=== PATIENT | female | born 1965 | race Caucasian/White ===

== ENCOUNTER 2017-01-27 14:41 | Outpatient (CLI) | payer BC | END 2017-01-27 14:42 | disposition home or self-care (01) | DX: Z51.81 Encounter for therapeutic drug level monitoring (principal) ==

== ENCOUNTER 2017-10-03 09:15 | Outpatient (CLI) | payer BC ==
[2017-10-03 18:04] LABS: CHOL/HDL RATIO 2.1 (<4.4); CHOLESTEROL 199 mg/dL; HDL CHOLESTEROL 93 mg/dL; TRIGLYCERIDES 82 mg/dL; VLDL CHOLESTEROL 16 mg/dL
== END 2017-10-03 09:16 | disposition home or self-care (01) ==
LOC: LAB.F 09:15
PROVIDERS: ATTEND Physician Assistant Medical
DX: Z00.00 Encounter for general adult medical examination without abnormal findings (principal); Z13.89 Encounter for screening for other disorder
CPT/HCPCS: 36415; 80061

== ENCOUNTER 2018-06-09 13:44 | Outpatient (CLI) | payer BC ==
[2018-06-09 17:39] LABS: BASOPHILS # (AUTO) 0.1 10^3/uL (0.0-0.1); BASOPHILS % (AUTO) 0.6 %; EOSINOPHILS % (AUTO) 0.4 %; HGB - HEMOGLOBIN 13.8 g/dL (12.0-16.0); LYMPHOCYTES # (AUTO) 2.2 10^3/uL (1.5-3.5); LYMPHOCYTES % (AUTO) 24.1 %; MEAN CORPUSCULAR HEMOGLOBIN 34.5 pg (27.0-31.0); MEAN CORPUSCULAR HGB CONC 34.1 g/dL (32.0-36.0); MEAN CORPUSCULAR VOLUME 101.3 fL (81.0-99.0); MEAN PLATELET VOLUME 8.4 fL (7.9-10.8); MONOCYTES # (AUTO) 0.5 10^3/uL (0.0-1.0); MONOCYTES % (AUTO) 5.6 %; NEUTROPHILS # (AUTO) 6.2 10^3/uL (1.5-6.6); NEUTROPHILS % (AUTO) 69.3 %; PLT - PLATELET COUNT 219 10^3/uL (130-450); RED BLOOD COUNT 3.99 10^6/uL (4.20-5.40); RED CELL DISTRIBUTION WIDTH 13.4 % (12.0-15.0)
[2018-06-09 19:04] LABS: ALBUMIN 4.3 g/dL (3.2-5.5); ALBUMIN/GLOBULIN RATIO 1.2 (1.0-2.2); ALKALINE PHOSPHATASE 103 IU/L (42-121); ALT ALANINE AMINOTRANSFERASE 39 IU/L (10-60); AST ASPARTATE AMINOTRANSFERASE 52 IU/L (10-42); BUN - BLOOD UREA NITROGEN 14 mg/dL (6-20); CALCIUM 9.3 mg/dL (8.5-10.3); CARBON DIOXIDE - CO2 26 mmol/L (21-32); CHLORIDE 100 mmol/L (101-111); CHOLESTEROL 209 mg/dL; CREATININE 0.7 mg/dL (0.4-1.0); GFR - MDRD 88 (>89); GLUCOSE 98 mg/dL (70-100); HDL CHOLESTEROL 107 mg/dL; LDL CHOLESTEROL,CALCULATED 85 mg/dL; LDL/HDL RATIO 0.8 (<4.4); SODIUM 138 mmol/L (135-145); VLDL CHOLESTEROL 17 mg/dL
== END 2018-06-09 13:45 | disposition home or self-care (01) ==
LOC: LAB.F 13:44
PROVIDERS: ATTEND Physician Assistant Medical
DX: I10 Essential (primary) hypertension (principal); Z51.81 Encounter for therapeutic drug level monitoring; E78.5 Hyperlipidemia, unspecified
CPT/HCPCS: 36415; 80053; 80061; 83721; 85025

== ENCOUNTER 2019-10-13 15:20 | Outpatient (CLI) | payer BC ==
[2019-10-13 17:13] LABS: BASOPHILS # (AUTO) 0.1 10^3/uL (0.0-0.1); EOSINOPHILS # (AUTO) 0.1 10^3/uL (0.0-0.7); EOSINOPHILS % (AUTO) 1.1 %; HGB - HEMOGLOBIN 12.4 g/dL (12.0-16.0); LYMPHOCYTES # (AUTO) 2.4 10^3/uL (1.5-3.5); LYMPHOCYTES % (AUTO) 30.2 %; MEAN CORPUSCULAR HEMOGLOBIN 34.7 pg (27.0-31.0); MEAN CORPUSCULAR HGB CONC 33.7 g/dL (32.0-36.0); MEAN CORPUSCULAR VOLUME 103.1 fL (81.0-99.0); MONOCYTES # (AUTO) 0.5 10^3/uL (0.0-1.0); MONOCYTES % (AUTO) 6.1 %; NEUTROPHILS # (AUTO) 4.9 10^3/uL (1.5-6.6); NEUTROPHILS % (AUTO) 60.7 %; PLT - PLATELET COUNT 258 10^3/uL (130-450); RED BLOOD COUNT 3.57 10^6/uL (4.20-5.40); RED CELL DISTRIBUTION WIDTH 13.2 % (12.0-15.0); WHITE BLOOD COUNT 8.1 x10^3/uL (4.8-10.8)
[2019-10-13 17:40] LABS: ALBUMIN 4.4 g/dL (3.2-5.5); ALBUMIN/GLOBULIN RATIO 1.1 (1.0-2.2); ALKALINE PHOSPHATASE 96 IU/L (42-121); ALT ALANINE AMINOTRANSFERASE 28 IU/L (10-60); AST ASPARTATE AMINOTRANSFERASE 46 IU/L (10-42); BILIRUBIN,TOTAL 0.8 mg/dL (0.2-1.0); BUN - BLOOD UREA NITROGEN 15 mg/dL (6-20); CALCIUM 9.9 mg/dL (8.5-10.3); CARBON DIOXIDE - CO2 26 mmol/L (21-32); CHLORIDE 102 mmol/L (101-111); CHOLESTEROL 248 mg/dL; CREATININE 0.7 mg/dL (0.4-1.0); GFR - MDRD 87 (>89); GLUCOSE 120 mg/dL (70-100); HDL CHOLESTEROL 127 mg/dL; LDL CHOLESTEROL,CALCULATED 102 mg/dL; LDL/HDL RATIO 0.8 (<4.4); SODIUM 139 mmol/L (135-145); TOTAL PROTEIN 8.4 g/dL (6.7-8.2); VLDL CHOLESTEROL 19 mg/dL
== END 2019-10-13 15:21 | disposition home or self-care (01) ==
LOC: LAB.S 15:20
PROVIDERS: ATTEND Physician Assistant Medical
DX: Z51.81 Encounter for therapeutic drug level monitoring (principal); Z79.899 Other long term (current) drug therapy; I10 Essential (primary) hypertension; E78.5 Hyperlipidemia, unspecified
CPT/HCPCS: 36415; 80053; 80061; 83721; 84443; 85025

== ENCOUNTER 2020-06-09 15:35 | Outpatient (CLI) | payer BC ==
--- NOTE | 2020-06-12 11:41 | Mammography Report ---
BILATERAL DIGITAL DIAGNOSTIC MAMMOGRAM 3D/2D: 06/09/2020 CLINICAL: Focal right breast pain. Comparison is made to exams dated: 10/10/2016 mammogram and 12/09/2014 mammogram - [facility]. There are scattered fibroglandular elements in both breasts. No significant masses, calcifications, or other findings are seen in either breast. IMPRESSION: INCOMPLETE: NEEDS ADDITIONAL IMAGING EVALUATION No mammographic evidence of malignancy. A targeted ultrasound of the right breast in the region of pain at 11:00 o'clock is recommended and w ill immediately follow. This exam was interpreted at Station ID: [id number]. NOTE: For mammograms, a report in lay terms will be sent to the patient. Approximately 15% of breast malignancies will not be visualized mammographically. In the management of a palpable breast mass, a negative mammogram must not discourage biopsy of a clinically suspicious lesion. Electronically Signed By: Medhat Taylor M.D. slc/:06/09/2020 17:19:49 ACR BI-RADS Category 0: Incomplete 3340F PARENCHYMAL PATTERN: (A) - The breast(s) demonstrate(s) scattered fibroglandular densities. BI-RADS CATEGORY: (0) - 0 Ultrasound [id number] Immediate follow-up LATERALITY: (B)
--- NOTE | 2020-06-12 11:41 | Ultrasound Report ---
LIMITED ULTRASOUND OF RIGHT BREAST: 06/09/2020 CLINICAL: Intermitten pain in RIGHT breast. Comparison is made to exams dated: 06/09/2020 mammogram and 10/10/2016 mammogram - [facility]. Color flow and real-time ultrasound of the right breast 10 o'clock region were performed. Beltran scale images of the real-time examination were reviewed. There is benign duct ectasia in the right breast central to the nipple in the retroareolar region. T his is near the reported region of pain. No internal debris or mass. No nipple discharge reported by patient. Color flow imaging demonstrates that there is no vascularity present. There also is a benign normal lymph node in the right breast at 10 o'clock posterior depth. This cor relates with mammography findings. This is stable on prior mammograms. IMPRESSION: BENIGN There is no sonographic evidence of malignancy. Benign duct ectasia in the right breast central to the nipple in the retroareolar region near the reg ion of pain. Small benign lymph node in the right breast at 10 o'clock posterior depth is benign. Exam findings conveyed to the patient. The patient is advised to monitor for significant change and n ipple discharge. A 1 year screening mammogram is recommended. This exam was interpreted at Station ID: [id number]. Electronically Signed By: Medhat Taylor M.D. slc/:06/09/2020 19:45:33 Ultrasound BI-RADS: 2 Benign BI-RADS CATEGORY: (2) - 2 RECOMMENDATION: (ANNUAL) - Recommend routine annual screening mammography. [id number] 1 year screening LATERALITY: (B)
== END 2020-06-09 15:36 | disposition home or self-care (01) ==
LOC: DI 15:35
PROVIDERS: ATTEND Registered Nurse
DX: N64.4 Mastodynia (principal); N60.41 Mammary duct ectasia of right breast
CPT/HCPCS: 76642; 77066

== ENCOUNTER 2021-07-03 13:24 | Outpatient (CLI) | payer BC ==
[2021-07-03 19:51] LABS: BASOPHILS # (AUTO) 0.1 10^3/uL (0.0-0.1); BASOPHILS % (AUTO) 0.9 %; EOSINOPHILS # (AUTO) 0.5 10^3/uL (0.0-0.7); EOSINOPHILS % (AUTO) 5.9 %; HCT - HEMATOCRIT 29.2 % (37.0-47.0); HGB - HEMOGLOBIN 10.4 g/dL (12.0-16.0); LYMPHOCYTES # (AUTO) 1.1 10^3/uL (1.5-3.5); LYMPHOCYTES % (AUTO) 13.5 %; MEAN CORPUSCULAR HEMOGLOBIN 38.8 pg (27.0-31.0); MEAN CORPUSCULAR HGB CONC 35.6 g/dL (32.0-36.0); MEAN PLATELET VOLUME 10.3 fL (7.9-10.8); MONOCYTES # (AUTO) 0.7 10^3/uL (0.0-1.0); MONOCYTES % (AUTO) 9.2 %; NEUTROPHILS # (AUTO) 5.6 10^3/uL (1.5-6.6); NEUTROPHILS % (AUTO) 70.1 %; PLT - PLATELET COUNT 182 10^3/uL (130-450); RED BLOOD COUNT 2.68 10^6/uL (4.20-5.40); RED CELL DISTRIBUTION WIDTH 12.7 % (12.0-15.0); WHITE BLOOD COUNT 7.9 x10^3/uL (4.8-10.8)
[2021-07-03 20:21] LABS: THYROID STIMULATING HORMONE 2.81 uIU/mL (0.34-5.60)
[2021-07-03 20:33] LABS: ALBUMIN 4.1 g/dL (3.2-5.5); ALBUMIN/GLOBULIN RATIO 1.2 (1.0-2.2); ALKALINE PHOSPHATASE 265 IU/L (42-121); ALT ALANINE AMINOTRANSFERASE 44 IU/L (10-60); AST ASPARTATE AMINOTRANSFERASE 173 IU/L (10-42); BILIRUBIN,TOTAL 2.8 mg/dL (0.2-1.0); BUN - BLOOD UREA NITROGEN 13 mg/dL (6-20); CALCIUM 9.2 mg/dL (8.5-10.3); CARBON DIOXIDE - CO2 19 mmol/L (21-32); CHLORIDE 87 mmol/L (101-111); CHOL/HDL RATIO 2.4 (<4.4); CHOLESTEROL 320 mg/dL; GFR - MDRD 57 (>89); GLUCOSE 91 mg/dL (70-100); HDL CHOLESTEROL 134 mg/dL; LDL CHOLESTEROL,CALCULATED 165 mg/dL; LDL/HDL RATIO 1.2 (<4.4); POTASSIUM 4.8 mmol/L (3.5-5.0); SODIUM 125 mmol/L (135-145); TOTAL PROTEIN 7.5 g/dL (6.7-8.2); TRIGLYCERIDES 107 mg/dL; VLDL CHOLESTEROL 21 mg/dL
[2021-07-05 12:07] LABS: HEPATITIS C ANTIBODY NON-REACTIVE (NON-REACTIVE)
[2021-07-05 16:12] LABS: HIV AG/AB 4TH GEN NON-REACTIVE (NON-REACTIVE)
== END 2021-07-03 13:25 | disposition home or self-care (01) ==
LOC: LAB.S 13:24
PROVIDERS: ATTEND Registered Nurse
DX: Z00.00 Encounter for general adult medical examination without abnormal findings (principal); R73.01 Impaired fasting glucose; E78.5 Hyperlipidemia, unspecified; I10 Essential (primary) hypertension
CPT/HCPCS: 36415; 80053; 80061; 83721; 84443; 85025; 86803; 87389

== ENCOUNTER 2021-07-03 16:29 | Outpatient (CLI) | payer BC | END 2021-07-03 16:30 | disposition critical access hospital (66) | LOC: EMS 16:29 | DX: S86.022A Laceration of left Achilles tendon, initial encounter (principal); S80.01XA Contusion of right knee, initial encounter; S00.83XA Contusion of other part of head, initial encounter; W19.XXXA Unspecified fall, initial encounter; Y92.009 Unspecified place in unspecified non-institutional (private) residence as the place of occurrence of the external cause | CPT/HCPCS: A0425; A0429 ==

== ENCOUNTER 2021-07-03 17:05 | Observation (INO) | payer BC ==
[2021-07-03] MEDS ORDERED: SODIUM CHLORIDE 0.9% 1,000 ML IV STA ×2 (17:18)
[2021-07-03 17:38] LABS: BASOPHILS # (AUTO) 0.1 10^3/uL (0.0-0.1); EOSINOPHILS # (AUTO) 0.3 10^3/uL (0.0-0.7); EOSINOPHILS % (AUTO) 3.2 %; HCT - HEMATOCRIT 27.9 % (37.0-47.0); HGB - HEMOGLOBIN 10.2 g/dL (12.0-16.0); LYMPHOCYTES # (AUTO) 1.8 10^3/uL (1.5-3.5); LYMPHOCYTES % (AUTO) 18.6 %; MEAN CORPUSCULAR HEMOGLOBIN 38.6 pg (27.0-31.0); MEAN CORPUSCULAR HGB CONC 36.6 g/dL (32.0-36.0); MEAN CORPUSCULAR VOLUME 105.7 fL (81.0-99.0); MEAN PLATELET VOLUME 9.6 fL (7.9-10.8); MONOCYTES # (AUTO) 0.9 10^3/uL (0.0-1.0); MONOCYTES % (AUTO) 9.1 %; NEUTROPHILS # (AUTO) 6.6 10^3/uL (1.5-6.6); NEUTROPHILS % (AUTO) 67.8 %; PLT - PLATELET COUNT 178 10^3/uL (130-450); RED BLOOD COUNT 2.64 10^6/uL (4.20-5.40); RED CELL DISTRIBUTION WIDTH 12.4 % (12.0-15.0); WHITE BLOOD COUNT 9.7 x10^3/uL (4.8-10.8)
[2021-07-03 17:50] LABS: ALBUMIN 4.2 g/dL (3.2-5.5); ALBUMIN/GLOBULIN RATIO 1.1 (1.0-2.2); ALKALINE PHOSPHATASE 280 IU/L (42-121); ALT ALANINE AMINOTRANSFERASE 46 IU/L (10-60); AST ASPARTATE AMINOTRANSFERASE 172 IU/L (10-42); BILIRUBIN,TOTAL 3.2 mg/dL (0.2-1.0); BUN - BLOOD UREA NITROGEN 13 mg/dL (6-20); CALCIUM 9.4 mg/dL (8.5-10.3); CARBON DIOXIDE - CO2 19 mmol/L (21-32); CHLORIDE 83 mmol/L (101-111); ETOH - ETHANOL < 5.0 mg/dL; GFR - MDRD 57 (>89); GLUCOSE 105 mg/dL (70-100); LIPASE 34 U/L (22-51); POTASSIUM 5.1 mmol/L (3.5-5.0); SODIUM 121 mmol/L (135-145)
--- NOTE | 2021-07-03 17:58 | CT Report ---
PROCEDURE: HEAD WO INDICATIONS: fall, head injury TECHNIQUE: Noncontrast 4.5 mm thick angled axial sections acquired from the foramen magnum to the vertex. For r adiation dose reduction, the following was used: automated exposure control, adjustment of mA and/or kV according to patient size. COMPARISON: Correlation is made with the accompanying cervical spine CT, 07/03/2021. FINDINGS: Image quality: There is streak artifact seen through the skull base. CSF spaces: Basal cisterns are patent. No extra-axial fluid collections. Ventricles are normal in size and shape. Brain: No midline shift. No intracranial masses or hemorrhage. Beltran-white matter interface is norm al. Skull and face: Calvarium and visualized facial bones are intact, without suspicious lesions. Sinuses: Visualized sinuses and mastoids are clear. IMPRESSION: No intracranial hemorrhage is seen. No significant intracranial abnormality is seen. Reviewed by: Jake Garland MD on 07/03/2021 4:57 PM NICA Approved by: Jake Garland MD on 07/03/2021 4:57 PM NICA Station ID: [id number]
--- NOTE | 2021-07-03 17:59 | CT Report ---
PROCEDURE: CERVICAL SPINE WO INDICATIONS: fall, neck injury TECHNIQUE: Noncontrast 3 mm thick sections acquired from the skull base to the T4 level. Sagittal and coronal r eformats were then constructed. For radiation dose reduction, the following was used: automated exp osure control, adjustment of mA and/or kV according to patient size. COMPARISON: Correlation is made with the accompanying head CT, 07/03/2021. FINDINGS: Image quality: Excellent. Bones: No fractures or dislocations. Visualized superior ribs are intact. There is moderate to severe disc space narrowing seen at C5-C6, C6-C7, and at C7-T1. Focal degenerati ve change can also be seen involving the C1-C2 interface anteriorly. Milder degenerative changes are seen elsewhere. Soft tissues: Prevertebral soft tissues are normal in thickness. No paravertebral hematomas. No ap ical pneumothoraces. IMPRESSION: No displaced fractures are seen. Cervical spine degenerative changes are seen, which are worst inferiorly. Reviewed by: Jake Garland MD on 07/03/2021 4:58 PM NICA Approved by: Jake Garland MD on 07/03/2021 4:58 PM NICA Station ID: [id number]
[2021-07-03] MEDS ORDERED: FOLIC ACID INJ 1 MG, THIAMINE INJ 100 MG, MAGNESIUM SULFATE 2 GM, MULTIVITAMIN 10 ML in... IV STA ×5 (18:05)
--- NOTE | 2021-07-03 18:14 | ED Physician Documentation ---
History of Present Illness - Stated complaint Stated Complaint: GLF - Chief complaint Chief Complaint: General - History obtained from History obtained from: Patient, EMS - History of Present Illness Timing: Last night Pain level max: 5 Pain level now: 5 - Additonal information Additional information: Patient is a 55-year-old female who was sent in from the walk-in clinic today. She states last night she tripped and fell going down the stairs lacerating her left lower leg by the Achilles tendon. This was repaired at the walk-in clinic and placed into a splint. She also had a laceration to the right fifth digit which was also repaired. She was noted to be shaky and tremulous at the walk-in clinic. She also had bruising to her forehead and so was sent here for evaluation. Patient states she did hit her head but did not lose consciousness. Denies any neck or back pain. States she drinks 2-3 drinks per night. Review of Systems Ten Systems: 10 systems reviewed and negative Constitutional: denies: Fever, Chills Respiratory: denies: Cough GI: denies: Nausea, Vomiting, Diarrhea Musculoskeletal: denies: Neck pain, Back pain Neurologic: reports: Head injury. denies: Focal weakness, Numbness, Headache PD PAST MEDICAL HISTORY - Past Medical History Past Medical History: Yes Cardiovascular: None Respiratory: None Endocrine/Autoimmune: None GI: None : Frequency HEENT: None Psych: Depression Musculoskeletal: Chronic back pain Derm: None - Past Surgical History Ortho: ACL reconstruction, Other - Present Medications Home Medications: Ambulatory Orders Medication Instructions Recorded Confirmed Hydrocodone/Acetaminophen 1 tab PO Q6HR PRN 10/04/15 10/04/15 [Hydrocodon-Acetaminophn 10-325] Pregabalin [Lyrica] 75 mg PO BID 10/04/15 10/04/15 oxyCODONE [Roxicodone] 5 mg PO Q6HR PRN 10/04/15 10/04/15 - Allergies Allergies/Adverse Reactions: Allergies Allergy/AdvReac Type Severity Reaction Status Date / Time No Known Drug Allergies Allergy Verified 07/03/21 17:12 - Social History Smoking Status: Never smoker PD ED PE NORMAL - Vitals Vital signs reviewed: Yes - General General: Alert and oriented X 3, No acute distress, Well developed/nourished - HEENT HEENT: PERRL, Moist mucous membranes, Other (forehead contusion) - Neck Neck: Supple, no meningeal sign - Cardiac Cardiac: RRR, Strong equal pulses - Respiratory Respiratory: No respiratory distress, Clear bilaterally - Abdomen Abdomen: Soft, Non tender, Non distended - Back Back: No spinal TTP - Derm Derm: Warm and dry - Extremities Extremities: No edema, No calf tenderness / cord, Other (LLE splint in place, NVI. Mild TTP over the R knee, all ligaments intact.) - Neuro Neuro: Alert and oriented X 3 - Psych Psych: Normal mood, Normal affect Results - Vitals Vitals: Vital Signs - 24 hr 07/03/21 07/03/21 17:12 17:16 Temperature 36.5 C 36.5 C Heart Rate 88 88 Respiratory 18 18 Rate Blood Pressure 108/65 108/65 O2 Saturation 97 97 Oxygen O2 Source Room air - Labs Labs: Laboratory Tests 07/03/21 07/03/21 07/03/21 17:30 17:30 18:18 WBC 9.7 RBC 2.64 L Hgb 10.2 L Hct 27.9 L MCV 105.7 H MCH 38.6 H MCHC 36.6 H RDW 12.4 Plt Count 178 MPV 9.6 Neut # (Auto) 6.6 Lymph # (Auto) 1.8 [place] # (Auto) 0.9 Eos # (Auto) 0.3 Baso # (Auto) 0.1 Absolute Nucleated RBC 0.00 Nucleated RBC % 0.0 VBG pH VBG pCO2 VBG pO2 VBG HCO3 VBG Total CO2 VBG O2 Saturation VBG Base Excess Sodium 121 L Potassium 5.1 H Chloride 83 L Carbon Dioxide 19 L Anion Gap 19.0 H BUN 13 Creatinine 1.0 Estimated GFR (MDRD) 57 L Glucose 105 H Calcium 9.4 Total Bilirubin 3.2 H AST 172 H ALT 46 Alkaline Phosphatase 280 H Total Protein 8.0 Albumin 4.2 Globulin 3.8 Albumin/Globulin Ratio 1.1 Lipase 34 Ethyl Alcohol < 5.0 Serum Ketones NEGATIVE 07/03/21 18:18 WBC RBC Hgb Hct MCV MCH MCHC RDW Plt Count MPV Neut # (Auto) Lymph # (Auto) [place] # (Auto) Eos # (Auto) Baso # (Auto) Absolute Nucleated RBC Nucleated RBC % VBG pH 7.391 VBG pCO2 38.1 L VBG pO2 31.7 VBG HCO3 22.6 L VBG Total CO2 23.8 L VBG O2 Saturation 52.8 L VBG Base Excess -2.0 Sodium Potassium Chloride Carbon Dioxide Anion Gap BUN Creatinine Estimated GFR (MDRD) Glucose Calcium Total Bilirubin AST ALT Alkaline Phosphatase Total Protein Albumin Globulin Albumin/Globulin Ratio Lipase Ethyl Alcohol Serum Ketones - Rads (name of study) head CT Radiology: Final report received, EMP read contemporaneously, See rad report cervical spine CT Radiology: Final report received, EMP read contemporaneously, See rad report R knee xray Radiology: Final report received, EMP read contemporaneously, See rad report L ankle xray Radiology: Final report received, EMP read contemporaneously, See rad report PD MEDICAL DECISION MAKING - ED course Complexity details: reviewed results, re-evaluated patient, considered differential, d/w patient ED course: Patient is a 55-year-old female who presents to the emergency department after a fall downstairs last night. She does drink alcohol daily. Is found to be significantly hyponatremic. Sodium is 121, down from her usual of 1 37-1 38. Also hypochloremic. Given IV fluids. Given a banana bag. Has mild anemia as well. Appears to have mild alcoholic hepatitis. Her lacerations were repaired at the walk-in clinic and these were discussed with orthopedics via telephone by the walk-in clinic MD. She will be maintained in the left lower extremity splint. Patient will need to be admitted for the hyponatremia and electrolyte issues. Patient will be signed out to the [facility] emergency department physician awaiting hospitalist shift change for admission. This document was made in part using voice recognition software. While efforts are made to proofread this document, sound alike and grammatical errors may occur. Departure - Departure Disposition: 66 [facility] DC/Xfer Clinical Impression: Hyponatremia, Hypochloremia, Metabolic acidosis, Hyperbilirubinemia Laceration of ankle Qualifiers: Encounter type: initial encounter Laterality: left Qualified Code(s): S91.012A - Laceration without foreign body, left ankle, initial encounter Condition: Stable
--- NOTE | 2021-07-03 18:30 | XRAY Report ---
PROCEDURE: Ankle 2 View LT INDICATIONS: fall, achilles laceration, ankle pain TECHNIQUE: 2 views of the ankle were acquired. COMPARISON: None. FINDINGS: Bones: Casting material is mediastinal bony detail. No fractures identified. No dislocations. Prior screw placement x5. Mild degenerative changes in the midfoot. Prominent plantar calcaneal spur. Ankle mortise is normally aligned. No suspicious bony lesions. Soft tissues: No tibiotalar joint effusion. Lucency posterior to the ankle within the soft tissues. IMPRESSION: No fracture or dislocation identified. Lucency posterior to the ankle within the soft tissues. This could represent soft tissue gas due to l aceration as described in history. Reviewed by: Medhat Taylor MD on 07/03/2021 6:29 PM PDT Approved by: Medhat Taylor MD on 07/03/2021 6:29 PM PDT Station ID: [id number]
--- NOTE | 2021-07-03 18:32 | XRAY Report ---
PROCEDURE: Knee 4 View RT INDICATIONS: fall, R knee pain TECHNIQUE: 4 views of the right knee(s) were acquired. COMPARISON: None. FINDINGS: Bones: Joint space narrowing most pronounced in the medial compartment. Tricompartmental osteophytos is. No fractures or dislocations. No suspicious bony lesions. Soft tissues: Small joint effusion. No suspicious soft tissue calcifications. IMPRESSION: No acute osseous abnormality. Small joint effusion. Moderate to severe osteoarthritis most pronounced in the medial comparison. Reviewed by: Medhat Taylor MD on 07/03/2021 6:30 PM PDT Approved by: Medhat Taylor MD on 07/03/2021 6:30 PM PDT Station ID: [id number]
[2021-07-03 18:35] LABS: VBG PCO2 38.1 mmHg (41-51); VBG PH 7.391 (7.31-7.41)
[2021-07-03 18:36] LABS: VBG HCO3 22.6 mmol/L (23-28); VBG OXYGEN SATURATION 52.8 % (60-80); VBG PO2 31.7 mmHg (25-47); VBG TOTAL CO2 23.8 mmol/L (24-29)
[2021-07-03] MEDS ORDERED: PREGABALIN 100 MG CAPSULE PO STA (18:58)
[2021-07-03] MEDS ORDERED: oxyCODONE 5 MG TABLET PO STA (18:58)
[2021-07-03 19:06] LABS: INR 1.2 (0.8-1.2); PT - PROTHROMBIN TIME 13.3 secs (9.9-12.6)
[2021-07-03 19:13] LABS: PARTIAL THROMBOPLASTIN TIME 27.6 secs (24.9-33.3)
[2021-07-03] MEDS ORDERED: MAGNESIUM SULFATE 2 GRAM 2 GM/50 ML BAG IV ONE (20:35)
[2021-07-03 20:41] LABS: B. PARAPERTUSSIS- RESP PCR PAN NOT DETECTED; B. PERTUSSIS- RESP PCR PANEL NOT DETECTED; C. PNEUMONIAE- RESP PCR PANEL NOT DETECTED; CORONAVIRUS 229E-RESP PCR NOT DETECTED; CORONAVIRUS HKU1-RESP PCR NOT DETECTED; CORONAVIRUS NL63-RESP PCR NOT DETECTED; CORONAVIRUS OC43-RESP PCR NOT DETECTED; HUMAN METAPNEUMOVIRUS NOT DETECTED; INFLUENZA A- RESP PCR PANEL NOT DETECTED; INFLUENZA B - RESP PCR PANEL NOT DETECTED; M. PNEUMONIAE- RESP PCR PANEL NOT DETECTED; PARAINFLUENZA VIRUS 1 NOT DETECTED; PARAINFLUENZA VIRUS 2 NOT DETECTED; PARAINFLUENZA VIRUS 3 NOT DETECTED; PARAINFLUENZA VIRUS 4 NOT DETECTED; RHINOVIRUS/ENTEROVIRUS NOT DETECTED; RSV- RESP PCR PANEL NOT DETECTED; SARS-CoV-2 -RESP PCR PANEL NOT DETECTED
[2021-07-03] MEDS ORDERED: ONDANSETRON 4 MG/2 ML VIAL IVP PRN (21:45)
[2021-07-03] MEDS ORDERED: SODIUM CHLORIDE FLUSH 0.9% 10 ML SYRINGE IVP PRN (21:45)
[2021-07-03] MEDS ORDERED: ONDANSETRON ODT 4 MG TABLET TL PRN (21:45)
--- NOTE | 2021-07-03 21:59 | PROVIDER PROGRESS NOTE ---
Objective - Vital Signs/Intake & Output Vital Signs: Vital Signs x48h Temp Pulse Resp BP Pulse Ox 07/03/21 21:00 82 16 115/71 97 07/03/21 19:16 36.6 C 85 16 110/70 98 07/03/21 17:16 36.5 C 88 18 108/65 97 07/03/21 17:12 36.5 C 88 18 108/65 97 Intake & Output: Intake & Output 06/30/21 07/01/21 07/02/21 07/03/21 23:59 23:59 23:59 23:59 Intake Total 2065.2 Balance 2065.2 - Lab Results Fish Bones: 07/03/21 17:30 07/03/21 17:30 Other Labs: Lab Results x24hrs 07/03/21 07/03/21 07/03/21 Range/Units 18:55 18:40 18:18 WBC (4.8-10.8) x10^3/uL RBC (4.20-5.40) 10^6/uL Hgb (12.0-16.0) g/dL Hct (37.0-47.0) % MCV (81.0-99.0) fL MCH (27.0-31.0) pg MCHC (32.0-36.0) g/dL RDW (12.0-15.0) % Plt Count (130-450) 10^3/uL MPV (7.9-10.8) fL Neut # (Auto) (1.5-6.6) 10^3/uL Lymph # (Auto) (1.5-3.5) 10^3/uL [place] # (Auto) (0.0-1.0) 10^3/uL Eos # (Auto) (0.0-0.7) 10^3/uL Baso # (Auto) (0.0-0.1) 10^3/uL Absolute Nucleated RBC x10^3/uL Nucleated RBC % /100WBC PT 13.3 H (9.9-12.6) secs INR 1.2 (0.8-1.2) APTT 27.6 (24.9-33.3) secs VBG pH 7.391 (7.31-7.41) VBG pCO2 38.1 L (41-51) mmHg VBG pO2 31.7 (25-47) mmHg VBG HCO3 22.6 L (23-28) mmol/L VBG Total CO2 23.8 L (24-29) mmol/L VBG O2 Saturation 52.8 L (60-80) % VBG Base Excess -2.0 (-2 - +2) mmol/L Sodium (135-145) mmol/L Potassium (3.5-5.0) mmol/L Chloride (101-111) mmol/L Carbon Dioxide (21-32) mmol/L Anion Gap (6-13) BUN (6-20) mg/dL Creatinine (0.4-1.0) mg/dL Estimated GFR (MDRD) (>89) Glucose (70-100) mg/dL Calcium (8.5-10.3) mg/dL Phosphorus (2.5-4.6) mg/dL Magnesium (1.7-2.8) mg/dL Total Bilirubin (0.2-1.0) mg/dL AST (10-42) IU/L ALT (10-60) IU/L Alkaline Phosphatase (42-121) IU/L Total Protein (6.7-8.2) g/dL Albumin (3.2-5.5) g/dL Globulin (2.1-4.2) g/dL Albumin/Globulin Ratio (1.0-2.2) Lipase (22-51) U/L Nasal Adenovirus (PCR) NOT DETECTED Nasal B. parapertussis DNA (PCR) NOT DETECTED Nasal Coronavir 229E PCR NOT DETECTED Nasal Coronavir HKU1 PCR NOT DETECTED Nasal Coronavir NL63 PCR NOT DETECTED Nasal Coronavir OC43 PCR NOT DETECTED Nasal Enterovir/Rhinovir PCR NOT DETECTED Nasal Influenza B PCR NOT DETECTED Nasal Influenza A PCR NOT DETECTED Nasal Parainfluen 1 PCR NOT DETECTED Nasal Parainfluen 2 PCR NOT DETECTED Nasal Parainfluen 3 PCR NOT DETECTED Nasal Parainfluen 4 PCR NOT DETECTED Nasal RSV (PCR) NOT DETECTED Nasal B.pertussis DNA PCR NOT DETECTED Nasal C.pneumoniae (PCR) NOT DETECTED Jonathan Human Metapneumo PCR NOT DETECTED Nasal M.pneumoniae (PCR) NOT DETECTED Nasal SARS-CoV-2 (PCR) NOT DETECTED Ethyl Alcohol mg/dL Serum Ketones (NEGATIVE) 07/03/21 07/03/21 07/03/21 Range/Units 18:18 17:30 17:30 WBC (4.8-10.8) x10^3/uL RBC (4.20-5.40) 10^6/uL Hgb (12.0-16.0) g/dL Hct (37.0-47.0) % MCV (81.0-99.0) fL MCH (27.0-31.0) pg MCHC (32.0-36.0) g/dL RDW (12.0-15.0) % Plt Count (130-450) 10^3/uL MPV (7.9-10.8) fL Neut # (Auto) (1.5-6.6) 10^3/uL Lymph # (Auto) (1.5-3.5) 10^3/uL [place] # (Auto) (0.0-1.0) 10^3/uL Eos # (Auto) (0.0-0.7) 10^3/uL Baso # (Auto) (0.0-0.1) 10^3/uL Absolute Nucleated RBC x10^3/uL Nucleated RBC % /100WBC PT (9.9-12.6) secs INR (0.8-1.2) APTT (24.9-33.3) secs VBG pH (7.31-7.41) VBG pCO2 (41-51) mmHg VBG pO2 (25-47) mmHg VBG HCO3 (23-28) mmol/L VBG Total CO2 (24-29) mmol/L VBG O2 Saturation (60-80) % VBG Base Excess (-2 - +2) mmol/L Sodium 121 L (135-145) mmol/L Potassium 5.1 H (3.5-5.0) mmol/L Chloride 83 L (101-111) mmol/L Carbon Dioxide 19 L (21-32) mmol/L Anion Gap 19.0 H (6-13) BUN 13 (6-20) mg/dL Creatinine 1.0 (0.4-1.0) mg/dL Estimated GFR (MDRD) 57 L (>89) Glucose 105 H (70-100) mg/dL Calcium 9.4 (8.5-10.3) mg/dL Phosphorus 4.0 (2.5-4.6) mg/dL Magnesium 1.0 L* (1.7-2.8) mg/dL Total Bilirubin 3.2 H (0.2-1.0) mg/dL AST 172 H (10-42) IU/L ALT 46 (10-60) IU/L Alkaline Phosphatase 280 H (42-121) IU/L Total Protein 8.0 (6.7-8.2) g/dL Albumin 4.2 (3.2-5.5) g/dL Globulin 3.8 (2.1-4.2) g/dL Albumin/Globulin Ratio 1.1 (1.0-2.2) Lipase 34 (22-51) U/L Nasal Adenovirus (PCR) Nasal B. parapertussis DNA (PCR) Nasal Coronavir 229E PCR Nasal Coronavir HKU1 PCR Nasal Coronavir NL63 PCR Nasal Coronavir OC43 PCR Nasal Enterovir/Rhinovir PCR Nasal Influenza B PCR Nasal Influenza A PCR Nasal Parainfluen 1 PCR Nasal Parainfluen 2 PCR Nasal Parainfluen 3 PCR Nasal Parainfluen 4 PCR Nasal RSV (PCR) Nasal B.pertussis DNA PCR Nasal C.pneumoniae (PCR) Jonathan Human Metapneumo PCR Nasal M.pneumoniae (PCR) Nasal SARS-CoV-2 (PCR) Ethyl Alcohol < 5.0 mg/dL Serum Ketones NEGATIVE (NEGATIVE) 07/03/21 Range/Units 17:30 WBC 9.7 (4.8-10.8) x10^3/uL RBC 2.64 L (4.20-5.40) 10^6/uL Hgb 10.2 L (12.0-16.0) g/dL Hct 27.9 L (37.0-47.0) % MCV 105.7 H (81.0-99.0) fL MCH 38.6 H (27.0-31.0) pg MCHC 36.6 H (32.0-36.0) g/dL RDW 12.4 (12.0-15.0) % Plt Count 178 (130-450) 10^3/uL MPV 9.6 (7.9-10.8) fL Neut # (Auto) 6.6 (1.5-6.6) 10^3/uL Lymph # (Auto) 1.8 (1.5-3.5) 10^3/uL [place] # (Auto) 0.9 (0.0-1.0) 10^3/uL Eos # (Auto) 0.3 (0.0-0.7) 10^3/uL Baso # (Auto) 0.1 (0.0-0.1) 10^3/uL Absolute Nucleated RBC 0.00 x10^3/uL Nucleated RBC % 0.0 /100WBC PT (9.9-12.6) secs INR (0.8-1.2) APTT (24.9-33.3) secs VBG pH (7.31-7.41) VBG pCO2 (41-51) mmHg VBG pO2 (25-47) mmHg VBG HCO3 (23-28) mmol/L VBG Total CO2 (24-29) mmol/L VBG O2 Saturation (60-80) % VBG Base Excess (-2 - +2) mmol/L Sodium (135-145) mmol/L Potassium (3.5-5.0) mmol/L Chloride (101-111) mmol/L Carbon Dioxide (21-32) mmol/L Anion Gap (6-13) BUN (6-20) mg/dL Creatinine (0.4-1.0) mg/dL Estimated GFR (MDRD) (>89) Glucose (70-100) mg/dL Calcium (8.5-10.3) mg/dL Phosphorus (2.5-4.6) mg/dL Magnesium (1.7-2.8) mg/dL Total Bilirubin (0.2-1.0) mg/dL AST (10-42) IU/L ALT (10-60) IU/L Alkaline Phosphatase (42-121) IU/L Total Protein (6.7-8.2) g/dL Albumin (3.2-5.5) g/dL Globulin (2.1-4.2) g/dL Albumin/Globulin Ratio (1.0-2.2) Lipase (22-51) U/L Nasal Adenovirus (PCR) Nasal B. parapertussis DNA (PCR) Nasal Coronavir 229E PCR Nasal Coronavir HKU1 PCR Nasal Coronavir NL63 PCR Nasal Coronavir OC43 PCR Nasal Enterovir/Rhinovir PCR Nasal Influenza B PCR Nasal Influenza A PCR Nasal Parainfluen 1 PCR Nasal Parainfluen 2 PCR Nasal Parainfluen 3 PCR Nasal Parainfluen 4 PCR Nasal RSV (PCR) Nasal B.pertussis DNA PCR Nasal C.pneumoniae (PCR) Jonathan Human Metapneumo PCR Nasal M.pneumoniae (PCR) Nasal SARS-CoV-2 (PCR) Ethyl Alcohol mg/dL Serum Ketones (NEGATIVE)
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
[2021-07-03] MEDS: SODIUM CHLORIDE FLUSH 0.9% 10 ML SYRINGE IVP SCH (23:52)
[2021-07-03] MEDS: SODIUM CHLORIDE 0.9% 1,000 ML IV SCH (23:52)
[2021-07-03] MEDS: oxyCODONE 5 MG TABLET PO PRN (23:53)
[2021-07-04] MEDS: oxyCODONE 5 MG TABLET PO PRN ×5 (03:59→20:01)
--- NOTE | 2021-07-04 05:10 | ED Physician Documentation ---
ED Addendum - Addendum Addendum: 07/04/21 05:09 The patient was signed out to me awaiting the hospitalist change of shift. I talked with Dr. Griffith who is the oncoming hospitalist who agreed to place the patient in the hospital for further care. No further complications or problems and the patient was placed in the hospital without complications.
[2021-07-04 07:32] LABS: ALBUMIN 3.3 g/dL (3.2-5.5); BILIRUBIN,TOTAL 2.4 mg/dL (0.2-1.0); CALCIUM 8.8 mg/dL (8.5-10.3); CREATININE 0.6 mg/dL (0.4-1.0); POTASSIUM 4.3 mmol/L (3.5-5.0); TOTAL PROTEIN 6.5 g/dL (6.7-8.2)
[2021-07-04] MEDS: PREGABALIN 25 MG CAPSULE PO SCH ×2 (08:10→20:41)
[2021-07-04] MEDS: SODIUM CHLORIDE 0.9% 1,000 ML IV SCH ×2 (08:15→19:27)
[2021-07-04] MEDS ORDERED: ceFAZolin 2 GM in SODIUM CHLORIDE 0.9% 100ML 100 ML IV SCH ×2 (10:52→11:30)
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
--- NOTE | 2021-07-04 11:20 | PHARMACY PROGRESS NOTE ---
- Best Possible Medication History Admit Date and Time: 07/03/21 2108 Processed by: Pharmacy Medication History completed: Yes Patient Interview: Completed (PATIENT ABLE TO CONFIRM HOME MEDICATIONS) As the person ultimately responsible for medication therapy, providers are able to order a medication from an existing home medication list in [facility] via the "Reconcile Routine" prior to Confirmation of that medication by manager technical support. Such practice is discouraged except when the physician, in their clinical judgment, deems that a medical need exists for a medication without regard to previous use.
--- NOTE | 2021-07-04 11:24 | Ultrasound Report ---
PROCEDURE: Abdomen Complete INDICATIONS: elevated LFT TECHNIQUE: Real-time scanning was performed of the abdominal and retroperitoneal organs, with image documentatio n. COMPARISON: None. FINDINGS: Liver: Coarse echogenic appearance of the liver seen diffusely. Liver measures 18.3 cm. Gallbladder: Gallbladder unremarkable. No sonographic Painter sign. Biliary ducts: Intrahepatic bile ducts are non-dilated. Extrahepatic bile duct caliber measures up to 7 mm. Normal is 6-7 mm or less in diameter, or 10 mm or less post-cholecystectomy. Pancreas: Visualized portions of the pancreas are sonographically normal. Spleen: Spleen is normal in size and homogeneous in echotexture. Kidneys: Kidneys are normal in size and echotexture. Right kidney measures 11.9 cm long; left kidne y measures 11.9 cm long. No hydronephrosis or nephrolithiasis. No solid masses. Aorta: Visualized aorta is normal in caliber at less than 3 cm. Iliacs: Common iliac arteries not well seen IVC: Intrahepatic inferior vena cava is patent. Miscellaneous: No free abdominal fluid. IMPRESSION: Hepatomegaly and coarsely echogenic liver suggesting hepatic steatosis/diffuse hepatocellular disease . Please correlate with LFTs. Normal appearance of the gallbladder. Borderline dilatation of the extra hepatic bile ducts, recommend clinical correlation and LFTs. Reviewed by: Kirby Clemente MD on 07/04/2021 11:23 AM PDT Approved by: Kirby Clemente MD on 07/04/2021 11:23 AM PDT Station ID: [id number]
[2021-07-04] MEDS: SODIUM CHLORIDE FLUSH 0.9% 10 ML SYRINGE IVP SCH ×2 (14:36→16:28)
[2021-07-04] MEDS ORDERED: LORazepam 2 MG/ML VIAL IVP PRN (14:58)
--- NOTE | 2021-07-04 18:46 | PROVIDER PROGRESS NOTE ---
Assessment/Plan - Problem List (1) Laceration of Achilles tendon Qualifiers: Encounter type: initial encounter Assessment/Plan: This was repaired with suturing in the walk-in clinic. In the ED, the provider called Ortho (Dr. Orozco) and a consult was requested of him today. Appreciate Dr. Orozco's input: He recommends toe-touch weightbearing, 2 doses of iv Ancef, pain meds as needed, MRI of the L ankle to determine if further management is needed. After discharge he wants the patient to see him in 1 week. Patient did not have her MRI until approximately 5 PM., results are pending. She has not received any iv antibx yet (as of this Provider's exam) She will not be [facility] today (2) Electrolyte disorder Assessment/Plan: Improved with iv saline hydration. Follow BMP daily (3) Abnormal results of liver function studies Assessment/Plan: Awaiting results of Ultrasound of liver with liver function panel including ferritin, ceruloplasmin, hepatitis panel. Will order a CIWA panel and prn ativan for possible alcohol withdrawal (4) Falls frequently Conclusion/Plan: She attributed the fall down her spiral staircase to her knee pain (bone on bone) to me and yesterday she blamed it on neuropathy, and foot deformity. ( She just does not feel her foot where it should be and she places it incorrectly and is fallen on uneven areas, and her stairs). Physical therapy evaluation today advised Home Health PT as she will be home bound. (5) History of hypertension Conclusion/Plan: With this stay in the emergency room, she has been relatively hypotensive. She states she takes amlodipine but in her PCP office it shows her taking lisinopril. We will hold off on giving that to her now (6) Opioid dependence in controlled environment Conclusion/Plan: She is within a controlled substance agreement. EMR documents that she has frequent visits to her PCP. She tells me she is gradually being tapered off. We will resume her Lyrica as she requested. And oxycodone will be ordered as needed for the ankle pain. - Current Meds Current Meds: Current Medications Generic Name Dose Route Start Last Admin Trade Name Freq PRN Reason Stop Dose Admin Sodium Chloride 1,000 mls @ 100 mls/hr 07/03/21 22:00 07/04/21 17:33 Normal Saline 0.9% IV 100 mls/hr .Q10H SHERRI Infusion Oxycodone HCl 5 mg 07/03/21 21:45 07/04/21 16:04 Oxycodone 5 Mg Tablet PO 5 mg Q4HR PRN Administration Pain 5 to 7 Pregabalin 150 mg 07/04/21 09:00 07/04/21 08:10 Pregabalin 25 Mg Capsule PO 150 mg BID SHERRI Administration Sodium Chloride 10 ml 07/04/21 01:00 07/04/21 16:28 Sodium Chloride Flush 0.9% 10 Ml Syringe IVP Not Given 0100,0900,1700 SHERRI - Lab Result Fish Bone Diagrams: 07/03/21 17:30 07/04/21 07:02 - Additional Planning My Orders: My Active Orders 07/04/21 Consult [Orthopedics Consult] [CONS] Routine Evaluate and Treat PT [PT] Routine 07/04/21 11:02 ANKLE WO - LT [MRI] Routine 07/04/21 14:58 CIWA - AR Score Card [RC] Q4HR LORazepam INJ [Ativan Inj (Vial)] 1 mg IVP Q30M PRN 07/04/21 20:00 ceFAZolin [Ancef] 2 gm Sodium Chloride 0.9% 100Ml [Normal Saline 0.9% 100Ml] 100 ml IV Q8H Subjective - Subjective Patient Reports: Other (Need cxycodone for pain in L ankle) Objective Vital Signs: Vital Signs - 24 hr 07/03/21 07/03/21 07/03/21 19:16 21:00 22:53 Temperature 36.6 C 37.5 C Heart Rate 85 82 Heart Rate [ Activity] Heart Rate [ 100 Brachial] Heart Rate [ Sitting] Respiratory 16 16 20 Rate Blood Pressure 110/70 115/71 Blood Pressure [Activity] Blood Pressure 131/62 H [Left Brachial artery] Blood Pressure [Sitting] O2 Saturation 98 97 94 07/04/21 07/04/21 07/04/21 00:00 04:22 07:30 Temperature 37.1 C 37.2 C 37.1 C Heart Rate Heart Rate [ Activity] Heart Rate [ 99 79 69 Brachial] Heart Rate [ Sitting] Respiratory 18 16 16 Rate Blood Pressure Blood Pressure [Activity] Blood Pressure 107/52 L 100/47 L 110/62 [Left Brachial artery] Blood Pressure [Sitting] O2 Saturation 100 98 100 09/08/21 09/08/21 11:40 15:40 Temperature 37.3 C Heart Rate Heart Rate [ 103 H Activity] Heart Rate [ 78 Brachial] Heart Rate [ 103 H Sitting] Respiratory 18 Rate Blood Pressure Blood Pressure 110/65 [Activity] Blood Pressure 111/62 [Left Brachial artery] Blood Pressure 122/70 [Sitting] O2 Saturation 98 Oxygen O2 Source Room air I&O (Last 24 Hrs): Intake and Output Totals x24h 07/02/21 07/03/21 07/04/21 23:59 23:59 23:59 Intake Total 2065.2 3355.000 Output Total 2350 Balance 2065.2 1005.000 General: Alert, Oriented x3 HEENT: Mucous membr. moist/pink Neck: Supple Neuro: Alert, Non Focal, Other (Hyperloquacious, no tremor) Cardiovascular: Regular rate, No murmurs Respiratory: No respiratory distress, Breath sounds nml Abdomen: Normal bowel sounds, Soft Extremities: No edema, Other (L foot bandaged and in a splint) - Results Results: Laboratory Results WBC 9.7 x10^3/uL (4.8-10.8) 07/03/21 17:30 RBC 2.64 10^6/uL (4.20-5.40) L 07/03/21 17:30 Hgb 10.2 g/dL (12.0-16.0) L 07/03/21 17:30 Hct 27.9 % (37.0-47.0) L 07/03/21 17:30 MCV 105.7 fL (81.0-99.0) H 07/03/21 17:30 MCH 38.6 pg (27.0-31.0) H 07/03/21 17:30 MCHC 36.6 g/dL (32.0-36.0) H 07/03/21 17:30 RDW 12.4 % (12.0-15.0) 07/03/21 17:30 Plt Count 178 10^3/uL (130-450) 07/03/21 17:30 MPV 9.6 fL (7.9-10.8) 07/03/21 17:30 Neut # (Auto) 6.6 10^3/uL (1.5-6.6) 07/03/21 17:30 Lymph # (Auto) 1.8 10^3/uL (1.5-3.5) 07/03/21 17:30 Mckinley # (Auto) 0.9 10^3/uL (0.0-1.0) 07/03/21 17:30 Eos # (Auto) 0.3 10^3/uL (0.0-0.7) 07/03/21 17:30 Baso # (Auto) 0.1 10^3/uL (0.0-0.1) 07/03/21 17:30 Absolute Nucleated RBC 0.00 x10^3/uL 07/03/21 17:30 Nucleated RBC % 0.0 /100WBC 07/03/21 17:30 PT 13.3 secs (9.9-12.6) H 07/03/21 18:55 INR 1.2 (0.8-1.2) 07/03/21 18:55 APTT 27.6 secs (24.9-33.3) 07/03/21 18:55 VBG pH 7.391 (7.31-7.41) 07/03/21 18:18 VBG pCO2 38.1 mmHg (41-51) L 07/03/21 18:18 VBG pO2 31.7 mmHg (25-47) 07/03/21 18:18 VBG HCO3 22.6 mmol/L (23-28) L 07/03/21 18:18 VBG Total CO2 23.8 mmol/L (24-29) L 07/03/21 18:18 VBG O2 Saturation 52.8 % (60-80) L 07/03/21 18:18 VBG Base Excess -2.0 mmol/L (-2 - +2) 07/03/21 18:18 Sodium 137 mmol/L (135-145) 07/04/21 07:02 Potassium 4.3 mmol/L (3.5-5.0) 07/04/21 07:02 Chloride 102 mmol/L (101-111) 07/04/21 07:02 Carbon Dioxide 24 mmol/L (21-32) 07/04/21 07:02 Anion Gap 11.0 (6-13) 07/04/21 07:02 BUN 10 mg/dL (6-20) 07/04/21 07:02 Creatinine 0.6 mg/dL (0.4-1.0) 07/04/21 07:02 Estimated GFR (MDRD) 103 (>89) 07/04/21 07:02 Glucose 103 mg/dL (70-100) H 07/04/21 07:02 Calcium 8.8 mg/dL (8.5-10.3) 07/04/21 07:02 Phosphorus 4.0 mg/dL (2.5-4.6) 07/03/21 17:30 Magnesium 2.2 mg/dL (1.7-2.8) 07/04/21 07:02 Total Bilirubin 2.4 mg/dL (0.2-1.0) H 07/04/21 07:02 AST 134 IU/L (10-42) H 07/04/21 07:02 ALT 35 IU/L (10-60) 07/04/21 07:02 Alkaline Phosphatase 232 IU/L (42-121) H 07/04/21 07:02 Total Protein 6.5 g/dL (6.7-8.2) L 07/04/21 07:02 Albumin 3.3 g/dL (3.2-5.5) 07/04/21 07:02 Globulin 3.2 g/dL (2.1-4.2) 07/04/21 07:02 Albumin/Globulin Ratio 1.0 (1.0-2.2) 07/04/21 07:02 Lipase 34 U/L (22-51) 07/03/21 17:30 Nasal Adenovirus (PCR) NOT DETECTED 07/03/21 18:40 Nasal B. parapertussis DNA (PCR) NOT DETECTED 07/03/21 18:40 Nasal Coronavir 229E PCR NOT DETECTED 07/03/21 18:40 Nasal Coronavir HKU1 PCR NOT DETECTED 07/03/21 18:40 Nasal Coronavir NL63 PCR NOT DETECTED 07/03/21 18:40 Nasal Coronavir OC43 PCR NOT DETECTED 07/03/21 18:40 Nasal Enterovir/Rhinovir PCR NOT DETECTED 07/03/21 18:40 Nasal Influenza B PCR NOT DETECTED 07/03/21 18:40 Nasal Influenza A PCR NOT DETECTED 07/03/21 18:40 Nasal Parainfluen 1 PCR NOT DETECTED 07/03/21 18:40 Nasal Parainfluen 2 PCR NOT DETECTED 07/03/21 18:40 Nasal Parainfluen 3 PCR NOT DETECTED 07/03/21 18:40 Nasal Parainfluen 4 PCR NOT DETECTED 07/03/21 18:40 Nasal RSV (PCR) NOT DETECTED 07/03/21 18:40 Nasal B.pertussis DNA PCR NOT DETECTED 07/03/21 18:40 Nasal C.pneumoniae (PCR) NOT DETECTED 07/03/21 18:40 Jonathan Human Metapneumo PCR NOT DETECTED 07/03/21 18:40 Nasal M.pneumoniae (PCR) NOT DETECTED 07/03/21 18:40 Nasal SARS-CoV-2 (PCR) NOT DETECTED 07/03/21 18:40 Ethyl Alcohol < 5.0 mg/dL 07/03/21 17:30 Serum Ketones NEGATIVE (NEGATIVE) 07/03/21 18:18
[2021-07-04] MEDS: ceFAZolin 2 GM in SODIUM CHLORIDE 0.9% 100ML 100 ML IV SCH (20:01)
[2021-07-05] MEDS: SODIUM CHLORIDE FLUSH 0.9% 10 ML SYRINGE IVP SCH ×2 (00:15→09:04)
[2021-07-05] MEDS: oxyCODONE 5 MG TABLET PO PRN ×5 (00:15→16:36)
[2021-07-05] MEDS: ceFAZolin 2 GM in SODIUM CHLORIDE 0.9% 100ML 100 ML IV SCH ×2 (04:01→12:48)
[2021-07-05] MEDS: SODIUM CHLORIDE 0.9% 1,000 ML IV SCH (05:49)
[2021-07-05 06:06] LABS: ALBUMIN 3.1 g/dL (3.2-5.5); BILIRUBIN,TOTAL 1.7 mg/dL (0.2-1.0); CALCIUM 8.7 mg/dL (8.5-10.3); CREATININE 0.5 mg/dL (0.4-1.0); POTASSIUM 4.1 mmol/L (3.5-5.0); TOTAL PROTEIN 6.3 g/dL (6.7-8.2)
--- NOTE | 2021-07-05 08:44 | MRI Report ---
PROCEDURE: Ankle LT W/O INDICATIONS: Torn acchilles tendon, was sutured TECHNIQUE: Noncontrast Magnetic Resonance Imaging (MRI) of the ankle/hindfoot was performed utilizing the follow ing sequences: sagittal T1 spin echo, sagittal inversion recovery, axial PD fast spin echo, axial inv ersion recovery, coronal inversion recovery, and coronal T1 spin echo with fat saturation. COMPARISON: Left ankle radiographs dated 07/03/2021 FINDINGS: Image quality: Excellent. Bones and joints: Metallic artifact is seen in the medial midfoot related to first tarsometatarsal fixation as seen on prior radiographs. No acute trabecular bone injury is seen in the areas not affected by metallic bernardino fact. The ankle mortise is maintained. No osteochondral defect is seen at the talar dome. Medial structures: The deltoid ligament and the spring ligament are intact. The posterior tibialis, flexor digitorum shiloh zoya, and flexor hallucis longus tendons are intact and within normal limits. The posterior tibial jostin rovascular bundle appears normal within the tarsal tunnel, without extrinsic mass effect. Lateral structures: The anterior and posterior distal tibiofibular ligaments are intact. The anterior talofibular ligamen t, posterior talofibular ligament, and calcaneofibular ligament are intact. The peroneus longus and p eroneus brevis tendons are intact and otherwise unremarkable. The sinus tarsi demonstrates normal fat ty signal. Anterior structures: The tibialis anterior, extensor hallucis longus, and extensor digitorum longus tendons appear intact. Posterior and plantar structures: There is complete tearing of the Achilles tendon just above its insertion onto the posterior calcaneu s with separation of tendon fibers measuring up to 4.6 cm laterally. Medially, tendon fibers are sepa rated by approximately 2.8 cm. Foci of metallic artifact are seen adjacent to the proximal tendon lisa mp, likely related to prior surgery. The plantaris tendon is also completely torn at the same level. A small amount of fluid and hemorrhage is seen in the adjacent soft tissues. There is a small nonedem atous plantar calcaneal spur. The proximal plantar fascia is intact. There is generalized grade 2 fat ty infiltration of the visualized intrinsic foot musculature and lower leg musculature without dispro portionate atrophy of the abductor digiti minimi muscle. IMPRESSION: Complete tearing of the Achilles tendon just above its insertion onto the calcaneus with separation o f tendon fibers measuring up to 4.6 cm. Metallic foci adjacent to the proximal tendon stump are likel y related to prior surgical intervention. A small amount of edema and hemorrhage are seen in the matt cent soft tissues. Reviewed by: Srikanth Kang MD on 07/05/2021 8:43 AM PDT Approved by: Srikanth Kang MD on 07/05/2021 8:43 AM PDT Station ID: [id number]
[2021-07-05] MEDS: PREGABALIN 25 MG CAPSULE PO SCH (09:04)
[2021-07-05] MEDS ORDERED: SODIUM CHLORIDE 0.9% 100ML 100 ML IV ONE (09:05)
--- NOTE | 2021-07-05 12:18 | Discharge Plan ---
Discharge Plan Problem Reviewed?: Yes Disposition: 06 Home Health Service Condition: Stable Prescriptions: oxyCODONE [Roxicodone] 5 mg PO Q4HR PRN #15 tablet PRN Reason: Pain 5 to 7 Diet: Regular Activity Restrictions: Activity as Tolerated Shower Restrictions: No Driving Restrictions: Yes Weight Bearing: Toe Touch (on L foot) Instruction Topics: Rupture Achilles Tendon, Achilles Tendon Repair Surg Health Concerns: You were in the hospital because your blood sodium level was low and for m anagement of the left Achilles tendon rupture. You have an appointment to see the orthopedic surgeon on 07/09/2021 and 9 AM. Please call for lift assistance from the fire department whenever you need to get into a vehicle. Referral for physical therapy in your house has been ordered. Please resume all your usual medications that you took before hospitalization. A new prescription for oxycodone for pain control was electronically sent to your [email or web address] pharmacy in [place]. Plan of Treatment: As above. Care Goals: Improvement in symptoms and stabilization are the goals. Assessment: The patient understands and is agreeable with the plan. Additional Instructions or Follow Up instructions: If you have new or worsening symptoms, call the orthopedic doctor or your primary care provider for advice or come to the ED. Follow-Up Care: Home Health - PT No Smoking: If you smoke, Please STOP! Call for help. Follow-up with: Margaret Cooley ARNP [Primary Care Provider] -
--- NOTE | 2021-07-05 12:23 | DISCHARGE SUMMARY ---
Discharge Summary Admit Date: 07/03/21 Discharge Date: 07/05/21 Discharging Provider: Dr Tammy Herrera Primary Care Provider: Izabela Cooley NP Condition at Discharge: Stable Discharge Disposition: [facility] History of Present Illness: From the admission H&P of Dr Veronika Shannon: She is a 55-year-old white female who has history of alcohol abuse. She drinks 2-3 drinks a night. But she denies she drinks to me. The history is from the EMR and one of her problems listed with her primary care provider is heavy alcohol abuse. Her last drink was yesterday, a vodka soda and she only does one 2-3 times a week. She is not a frequent flyer to our emergency room and presents today from the walk-in clinic. Last night she tripped and fell going down the stairs and she cut the back of her left leg. There is no loss of consciousness. This morning she went to the walk-in clinic and was found to have a torn Achilles. The laceration was closed. Dr. Orozco, orthopedics was consulted on. He states that he would see the patient in clinic and to put her in a splint. She was shaky, tremulous, and possibly going through alcohol withdrawal. But she says that she was just shaky and hypoglycemic, as she had not eaten since the night before. She also had a bruise to her forehead and with a history of fall they were concerned about trauma. So she was sent to our emergency room. In the emergency room head CT, cervical spine CT, ankle x-ray and knee x-ray were all done. She has no head bleed, no fractures. Vital signs were stable except for mildly low blood pressure of 108/65. She had a left lower extremity splint in place. Mild tenderness over the right knee. Alert and oriented. No mention of tremulousness or tachycardia. However her labs showed her to have hyponatremia. She was 125, anion gap 19. BUN 13, creatinine 1. Alk phos 265. Total bili 3.2, AST 172. Magnesium low at 1.0. She is newly anemic. 03 October 2019 hemoglobin was 12.4. Today she is 10.2. Blood cell count is normal. Urine tox urine is positive for oxycodone, oxymorphone, negative for alcohol, negative for ketones. All other substances also negative. In performing a review of systems, she denies any recent change in diet. States that she has been eating and drinking normally. She has no increasing abdominal girth. No abdominal pain. No change in bowel or bladder habits. She feels like she has a great appetite and still likes quite a bit of food. Her main problem is that of neuropathy of her feet. She states it is idiopathic. That has resulted in lack of feeling in her feet. Combined that with complications of a bunionectomy of her left toe which she considers a botched surgery. Her toes have become more more deformed and she has had 2 more surgeries. She is not acknowledging a Charcot collapse from her neuropathy throughout the midfoot and forefoot unrelated to the surgery. She has even had an MRSA ulcer. So that leaves her with falling about once a month. She just does not feel her feet correctly. She is also been gaining weight, and become more and more sedentary since Covid shut down [employer] and she was laid off. She has a controlled substance agreement with her primary care provider. She is gradually being weaned off of her opiates she tells me. As such she is now placed in observation for generalized weakness due to electrolyte disturbance. She would like a few things done while she is here. The first is to see orthopedic surgery for an opinion about the Achilles rupture. The second is trying to figure out if she needs antibiotics or not. The walk-in clinic provider stated that she might need antibiotics but she would leave it up to the surgeon or myself if she needed antibiotics. The third request is that of being evaluated by physical therapy. She would like to do outpatient therapy when she gets out of the hospital. She is alarmed at how much ground she is lost over the last couple of years. She used to be able to garden, take long walks on the beach. With Covid restrictions and increasing weight and increasing leg and back pain with increasing leg weakness, she does not do much anymore. And she keeps on falling because her legs will not support her. She wants to make sure she gets her Lyrica in the morning. - HOSPITAL COURSE Hospital Course: (1) Laceration of Achilles tendon This was repaired by suturing in the walk-in clinic before coming to the ED. In the ED, the provider called Ortho (Dr. Orozco) and a consult was requested of him. He recommended toe-touch weight bearing status, 2 doses of iv Ancef were to be given, order pain meds as needed, and an MRI of the L ankle was done. It showed a complete tendon laceration, which will need surgery. After discharge he wants the patient to see him in 1 week. Ortho advised not descending on her spiral staircase. (2) Electrolyte disorder She had low serum Na, K, Mg. Improved with iv saline hydration and replacements. (3) Abnormal results of liver function studies Ultrasound of liver showed hepatomegaly and a coarse liver, consistent with liver disease. We also sent off liver function panel including ferritin, ceruloplasmin, hepatitis panel. A CIWA panel and prn ativan was ordered for possible alcohol withdrawal. (4) Falls frequently Abdomen and knee XRays and Head and c-spine CT imaging showed no trauma. She attributed the fall down her spiral staircase to her knee pain (bone on bone) plus she blamed it on neuropathy, and foot deformity. (She just does not feel her foot where it should be and she places it incorrectly and is fallen on uneven areas, and her stairs, she said). Physical therapy evaluation was done and they advised (and we ordered) Home Health PT and to call for lift assist when going to her doctors. (5) History of hypertension She states she takes amlodipine but in her PCP office it shows her taking lisinopril. (6) Opioid dependence in controlled environment She is within a controlled substance agreement. EMR documents that she has frequent visits to her PCP. She reported being gradually tapered off opiates. We resumed her Lyrica as she requested and oxycodone was ordered prn for the ankle pain. - ALLERGIES Allergies/Adverse Reactions: Allergies Allergy/AdvReac Type Severity Reaction Status Date / Time No Known Drug Allergies Allergy Verified 07/03/21 17:12 - MEDICATIONS Home Medications: Ambulatory Orders Medication Instructions Recorded Confirmed Hydrocodone/Acetaminophen 0.5 tab PO Q4H PRN 10/04/15 07/04/21 [Hydrocodone-Acetamin 10-325 mg] Lisinopril [Zestril] 20 mg PO DAILY 07/04/21 07/04/21 Meloxicam [Mobic] 15 mg PO DAILY 07/04/21 07/04/21 Pregabalin [Lyrica] 150 mg PO BID 07/04/21 07/04/21 Tizanidine HCl 2 mg PO HS PRN 07/04/21 07/04/21 amLODIPine [Norvasc] 5 mg PO DAILY 07/04/21 07/04/21 hydrOXYzine HCL [Hydroxyzine HCl] 25 mg PO Q4H PRN 07/04/21 07/04/21 traZODone [Desyrel] 50 - 100 mg PO HS PRN 07/04/21 07/04/21 oxyCODONE [Roxicodone] 5 mg PO Q4HR PRN #15 tablet 07/05/21 - PHYSICAL EXAM AT DISCHARGE General Appearance: positive: No acute distress, Alert Eyes Bilateral: positive: Normal inspection, EOMI ENT: positive: No signs of dehydration Neck: positive: Nml inspection, No JVD Respiratory: positive: No respiratory distress, Breath sounds nml Cardiovascular: positive: Regular rate & rhythm, No murmur Abdomen: positive: Other (Distended, soft, non-tender) Skin: positive: Warm, Dry Extremities: positive: No pedal edema, Other (L ankle in bandage) Neurologic/Psychiatric: positive: Oriented x3 (Non-focal) - LABS Result Diagrams: 07/03/21 17:30 07/05/21 05:10 - DIAGNOSTIC IMAGING Diagnostic Imaging Results: Final report reviewed - FOLLOW UP Follow Up: See Dr Orozco in 1 week in Ortho clinic. - TIME SPENT Time Spent in Discharge (Minutes): 50
[2021-07-05 14:16] LABS: HEPATITIS A IGM NON-REACTIVE (NON-REACTIVE); HEPATITIS B CORE ANTIBODY IGM NON-REACTIVE (NON-REACTIVE); HEPATITIS B SURFACE ANTIGEN NON-REACTIVE (NON-REACTIVE); HEPATITIS C ANTIBODY NON-REACTIVE (NON-REACTIVE)
[2021-07-05 16:37] VITALS: BP 122/85
== END 2021-07-05 16:40 | disposition home health service (06) ==
LOC: EDUNIT# → ED 17:05 → MS3 21:45
PROVIDERS: ADMIT Specialist; ATTEND Internal Medicine
DX: E87.1 Hypo-osmolality and hyponatremia (principal); E87.8 Other disorders of electrolyte and fluid balance, not elsewhere classified; E87.2 Acidosis; E80.6 Other disorders of bilirubin metabolism; F10.10 Alcohol abuse, uncomplicated; S86.022A Laceration of left Achilles tendon, initial encounter; S00.83XA Contusion of other part of head, initial encounter; W10.8XXA Fall (on) (from) other stairs and steps, initial encounter; Y92.009 Unspecified place in unspecified non-institutional (private) residence as the place of occurrence of the external cause; D64.9 Anemia, unspecified; Z86.14 Personal history of Methicillin resistant Staphylococcus aureus infection; R94.5 Abnormal results of liver function studies; Z91.81 History of falling; M20.62 Acquired deformities of toe(s), unspecified, left foot; I10 Essential (primary) hypertension; F11.20 Opioid dependence, uncomplicated; M17.0 Bilateral primary osteoarthritis of knee; M79.7 Fibromyalgia; E87.5 Hyperkalemia; G62.9 Polyneuropathy, unspecified; Z00.00 Encounter for general adult medical examination without abnormal findings; R73.01 Impaired fasting glucose; E78.5 Hyperlipidemia, unspecified; Z20.822 Contact with and (suspected) exposure to COVID-19
CPT/HCPCS: 0202U; 36415; 70450; 72125; 73564; 73600; 73721; 76700; 80048; 80053; 80061; 80074; 80320; 82009; 82803; 83690; 83735; 84100; 84443; 85025; 85610; 85730; 86803; 87389; 96365; 96366; 96367; 96368; 97162; 99284; 99285; A9270; G0378; J3411; 83721

== ENCOUNTER 2022-02-05 15:06 | Outpatient (CLI) | payer BC ==
--- NOTE | 2022-02-06 14:08 | Mammography Report ---
BILATERAL DIGITAL SCREENING MAMMOGRAM 3D/2D: 02/05/2022 CLINICAL: Routine screening. Comparison is made to exams dated: 06/09/2020 mammogram and 10/10/2016 mammogram - [facility]. There are scattered fibroglandular elements in both breasts. There are benign vascular calcifications in both breasts. No significant masses, calcifications, or other findings are seen in either breast. There has been no significant interval change. IMPRESSION: BENIGN There is no mammographic evidence of malignancy. A 1 year screening mammogram is recommended. This exam was interpreted at Station ID: [id number]. NOTE: For mammograms, a report in lay terms will be sent to the patient. Approximately 15% of breast malignancies will not be visualized mammographically. In the management of a palpable breast mass, a negative mammogram must not discourage biopsy of a clinically suspicious lesion. Electronically Signed By: Rina sosa/audreyrad:02/06/2022 10:09:15 ACR BI-RADS Category 2: Benign Finding(s) 3342F PARENCHYMAL PATTERN: (A) - The breast(s) demonstrate(s) scattered fibroglandular densities. BI-RADS CATEGORY: (2) - 2 RECOMMENDATION: (ANNUAL) - Recommend routine annual screening mammography. [id number] 1 year screening LATERALITY: (B)
== END 2022-02-05 15:07 | disposition home or self-care (01) ==
LOC: DI.S 15:06
PROVIDERS: ATTEND Registered Nurse
DX: Z12.31 Encounter for screening mammogram for malignant neoplasm of breast (principal)

== ENCOUNTER 2022-02-11 09:07 | Outpatient (CLI) | payer BC ==
--- NOTE | 2022-02-11 14:14 | XRAY Report ---
PROCEDURE: Knee 4 View BILAT INDICATIONS: BILAT KNEE PAIN TECHNIQUE: 4 views of the bilateral knee(s) were acquired. COMPARISON: None. FINDINGS: Bones: There is prior left ACL repair with postsurgical changes. Left knee alignment is anatomic. No gross hardware loosening or failure. No fractures or dislocations. Moderate to severe tricompartmen angelika osteoarthritis in left knee is seen. Moderate to severe right medial femoral tibial compartment o steoarthritic changes also seen. There is no patella subluxation. No suspicious bony lesions. Soft tissues: Moderate left suprapatellar joint effusion is seen.. No suspicious soft tissue calcifi cations. IMPRESSION: 1. Prior left ACL repair with post surgical changes. No gross hardware complication. No acute fractur e or dislocation. 2. Moderate to severe tricompartmental osteoarthritis in left knee. Moderate to severe right medial f emoral tibial compartment osteoarthritis. Moderate left suprapatellar joint effusion. Reviewed by: Femi Ortiz MD on 02/11/2022 2:12 PM PDT Approved by: Femi Ortiz MD on 02/11/2022 2:12 PM PDT Station ID: [id number]
== END 2022-02-11 23:59 | disposition home or self-care (01) ==
LOC: DI.WOS 09:07
PROVIDERS: ATTEND Orthopaedic Surgery
DX: M17.0 Bilateral primary osteoarthritis of knee (principal); M25.462 Effusion, left knee

== ENCOUNTER 2023-03-11 07:00 | Outpatient (CLI) | payer BC ==
--- NOTE | 2023-03-11 14:49 | XRAY Report ---
PROCEDURE: Wrist 3 View RT INDICATIONS: RIGHT WRIST PAIN TECHNIQUE: 3 views of the wrist were acquired. COMPARISON: None. FINDINGS: Bones: No fractures or dislocations. No suspicious bony lesions. There is severe first CMC degene rative narrowing. Prominent periarticular osteophytes and subchondral sclerosis are present. Soft tissues: No suspicious soft tissue calcifications or masses. IMPRESSION: Significant first CMC arthritic change. Reviewed by: Nely Heath MD on 03/11/2023 2:48 PM PDT Approved by: Nely Heath MD on 03/11/2023 2:48 PM PDT Station ID: [id number]
--- NOTE | 2023-03-11 14:50 | XRAY Report ---
PROCEDURE: Elbow 3 View RT INDICATIONS: RIGHT ELBOW PAIN TECHNIQUE: 3 views of the elbow were acquired. COMPARISON: None. FINDINGS: Bones: There is a nondisplaced comminuted fracture of the proximal radial shaft best seen on AP view . No suspicious bony lesions. Soft tissues: No effusion. No suspicious soft tissue calcifications or masses. IMPRESSION: Nondisplaced proximal radial shaft fracture. Reviewed by: Nely Heath MD on 03/11/2023 2:49 PM PDT Approved by: Nely Heath MD on 03/11/2023 2:49 PM PDT Station ID: [id number]
== END 2023-03-11 23:59 | disposition home or self-care (01) ==
LOC: DI.S 07:00
PROVIDERS: ATTEND Registered Nurse
DX: S52.354A Nondisplaced comminuted fracture of shaft of radius, right arm, initial encounter for closed fracture (principal); M18.11 Unilateral primary osteoarthritis of first carpometacarpal joint, right hand

== ENCOUNTER 2023-03-18 08:00 | Outpatient (CLI) | payer BC ==
--- NOTE | 2023-03-18 16:15 | XRAY Report ---
PROCEDURE: Forearm RT INDICATIONS: RIGHT FOREARM/RADIUS FRACTURE TECHNIQUE: 2 views of the forearm were acquired. COMPARISON: X-ray elbow and wrist 03/11/2023 FINDINGS: Bones: Comminuted fracture with interval increase displacement of the proximal radial diaphysis. No s uspicious bony lesions. Soft tissues: No suspicious soft tissue calcifications or masses. IMPRESSION: Increased displacement of the comminuted proximal radial diaphyseal fracture. Reviewed by: Nely Heath MD on 03/18/2023 4:13 PM PDT Approved by: Nely Heath MD on 03/18/2023 4:13 PM PDT Station ID: [id number]
== END 2023-03-18 23:59 | disposition home or self-care (01) ==
LOC: DI.WOS 08:00
PROVIDERS: ATTEND Orthopaedic Surgery
DX: S52.181A Other fracture of upper end of right radius, initial encounter for closed fracture (principal)

== ENCOUNTER 2023-03-25 08:00 | Outpatient (CLI) | payer BC ==
--- NOTE | 2023-03-25 19:59 | XRAY Report ---
PROCEDURE: Forearm RT INDICATIONS: RIGHT PROXIMAL RADIUS FRACTURE TECHNIQUE: 2 views of the forearm were acquired. COMPARISON: 03/18/2023 FINDINGS: Bones: Additional anterior displacement of proximal radial diaphyseal fracture Soft tissues: No suspicious soft tissue calcifications or masses. IMPRESSION: Additional minimal displacement of proximal radial diaphyseal fracture Reviewed by: Dawood Ernst MD on 03/25/2023 6:58 PM AKDT Approved by: Dawood Ernst MD on 03/25/2023 6:58 PM AKDT Station ID: [id number]
== END 2023-03-25 23:59 | disposition home or self-care (01) ==
LOC: DI.WOS 08:00
PROVIDERS: ATTEND Orthopaedic Surgery
DX: S52.344A Nondisplaced spiral fracture of shaft of radius, right arm, initial encounter for closed fracture (principal)

== ENCOUNTER 2023-05-20 15:02 | Outpatient (CLI) | payer BC ==
--- NOTE | 2023-05-21 10:31 | XRAY Report ---
PROCEDURE: Forearm RT INDICATIONS: RIGHT WRIST FRACTURE TECHNIQUE: 2 views of the forearm were acquired. COMPARISON: X-ray right forearm, 03/21/2023, 03/25/2023. X-ray right elbow, 03/11/2023. FINDINGS: Bones: There is a mildly displaced fracture of the proximal radial shaft with callus formation. Align ment is unchanged compared to last exam. No suspicious bony lesions. Soft tissues: No suspicious soft tissue calcifications or masses. Soft tissue swelling in the proxi mal forearm and wrist. IMPRESSION: Healing radial shaft fracture. Reviewed by: Alisha Light MD on 05/21/2023 10:30 AM PDT Approved by: Alisha Light MD on 05/21/2023 10:30 AM PDT Station ID: [id number]
--- NOTE | 2023-05-21 10:32 | XRAY Report ---
PROCEDURE: Wrist 3 View RT INDICATIONS: RIGHT WRIST FRACTURE TECHNIQUE: 3 views of the wrist were acquired. COMPARISON: X-ray right wrist, 03/11/2023. FINDINGS: Bones: No fractures or dislocations. No suspicious bony lesions. Severe osteoarthritic changes at t he first carpometacarpal joint. Soft tissues: No suspicious soft tissue calcifications or masses. Soft tissue swelling. IMPRESSION: 1. No acute osseous abnormality. Please see separate right forearm x-ray report. 2. Severe osteoarthritis. Reviewed by: Alisha Light MD on 05/21/2023 10:31 AM PDT Approved by: Alisha Light MD on 05/21/2023 10:31 AM PDT Station ID: [id number]
== END 2023-05-20 23:59 | disposition home or self-care (01) ==
LOC: DI.WOS 15:02
PROVIDERS: ATTEND Orthopaedic Surgery
DX: S52.334D Nondisplaced oblique fracture of shaft of right radius, subsequent encounter for closed fracture with routine healing (principal); M19.031 Primary osteoarthritis, right wrist

== ENCOUNTER 2023-06-17 15:15 | Outpatient (CLI) | payer BC ==
--- NOTE | 2023-06-18 14:32 | XRAY Report ---
PROCEDURE: Forearm RT INDICATIONS: RIGHT FOREARM FRACTURE TECHNIQUE: 2 views of the forearm were acquired. COMPARISON: X-ray 05/20/2023 FINDINGS: Bones: There is no fracture of the proximal/mid radial diaphysis. Bridging osteophytes are present. H owever, fracture lucencies remain visible despite minimal interval healing. Alignment is stable. No s uspicious bony lesions. Soft tissues: No suspicious soft tissue calcifications or masses. IMPRESSION: Continued interval healing with residual fracture lucencies and stable alignment of radial diaphyseal fracture. Reviewed by: Nely Heath MD on 06/18/2023 2:31 PM PDT Approved by: Nely Heath MD on 06/18/2023 2:31 PM PDT Station ID: [id number]
== END 2023-06-17 23:59 | disposition home or self-care (01) ==
LOC: DI.WOS 15:15
PROVIDERS: ATTEND Orthopaedic Surgery
DX: S52.334D Nondisplaced oblique fracture of shaft of right radius, subsequent encounter for closed fracture with routine healing (principal)

== ENCOUNTER 2023-08-09 19:57 | Outpatient (CLI) | payer BC | END 2023-08-09 23:59 | disposition EMS.NT | LOC: EMS 19:57 | DX: Z03.89 Encounter for observation for other suspected diseases and conditions ruled out (principal) ==

== ENCOUNTER 2023-09-09 08:00 | Outpatient (CLI) | payer BC ==
--- NOTE | 2023-09-11 11:34 | XRAY Report ---
PROCEDURE: Forearm RT INDICATIONS: RIGHT FOREARM FRACTURE TECHNIQUE: 2 views of the forearm were acquired. COMPARISON: Forearm x-ray 06/17/2023. FINDINGS: Bones: Fracture of the proximal/mid radial diaphysis with increased osseous bridging and decreased ap pearance of fracture line. No suspicious bony lesions. Soft tissues: No suspicious soft tissue calcifications or masses. IMPRESSION: Continued interval healing of radius fracture. Reviewed by: Nigel Lee MD on 09/11/2023 11:32 AM PST Approved by: Nigel Lee MD on 09/11/2023 11:32 AM PST Station ID: [id number]
== END 2023-09-09 23:59 | disposition home or self-care (01) ==
LOC: DI.WOS 08:00
PROVIDERS: ATTEND Orthopaedic Surgery
DX: S52.334D Nondisplaced oblique fracture of shaft of right radius, subsequent encounter for closed fracture with routine healing (principal)

== ENCOUNTER 2023-12-17 14:38 | Outpatient (CLI) | payer BC ==
--- NOTE | 2023-12-18 09:45 | Mammography Report ---
BILATERAL DIGITAL SCREENING MAMMOGRAM 3D/2D: 12/17/2023 CLINICAL: Routine screening. Comparison is made to exams dated: 02/05/2022 mammogram and 06/09/2020 mammogram - [facility]. There are scattered areas of fibroglandular density in both breasts (category b / 25%-50% glandular t issue). There are benign vascular calcifications in both breasts. No significant masses, calcifications, or other findings are seen in either breast. There has been no significant interval change. IMPRESSION: BENIGN There is no mammographic evidence of malignancy. A 1 year screening mammogram is recommended. Based on the Tyrer Cuzick model (a risk assessment model) the patient's lifetime risk is 9.1% and her 10 year risk is 3.5%. According to the ACR, ACS, and NCCN guidelines, an annual breast MRI exam sharon g with mammogram is recommended if the patient's lifetime risk is 20% or greater. This exam was interpreted at Station ID: [id number]. NOTE: For mammograms, a report in lay terms will be sent to the patient. Approximately 15% of breast malignancies will not be visualized mammographically. In the management of a palpable breast mass, a negative mammogram must not discourage biopsy of a clinically suspicious lesion. Electronically Signed By: Misbah hernandez/ana maría:12/18/2023 08:20:34 letter sent: No_Letter ACR BI-RADS Category 2: Benign Finding(s) 3342F PARENCHYMAL PATTERN: (A) - The breast(s) demonstrate(s) scattered fibroglandular densities. BI-RADS CATEGORY: (2) - 2 Mammogram [id number] 1 year screening LATERALITY: (B)
== END 2023-12-17 14:39 | disposition home or self-care (01) ==
LOC: DI.S 14:38
DX: Z12.31 Encounter for screening mammogram for malignant neoplasm of breast (principal); R92.323 Mammographic fibroglandular density, bilateral breasts; R92.1 Mammographic calcification found on diagnostic imaging of breast

== ENCOUNTER 2024-01-06 15:15 | Outpatient (CLI) | payer BC ==
--- NOTE | 2024-01-06 21:20 | XRAY Report ---
PROCEDURE: Knee 4 View BILAT INDICATIONS: BILAT KNEE PAIN TECHNIQUE: 5 views of the knee(s) were acquired. COMPARISON: Bilateral knee radiograph on February 11, 2022 FINDINGS: Bones: Left knee: Prior ACL repair with postsurgical changes. Hardware is intact with no perihardware lucenc y to suggest hardware loosening. Mildly increased anterior subluxation of the tibia with respect to t he femur. Severe tricompartmental joint space narrowing and juxta-articular osteophytosis. Slight lat eral patellar tilt and subluxation. No acute fracture or dislocation. No suspicious osseous lesions. Right knee: Severe tricompartmental joint space narrowing and juxta-articular osteophytosis. There is [id number] in the medial compartment. Ossific densities in the posterior tibiofemoral joint may re present intra-articular loose bodies and/or calcified bodies within a John's cyst. Slight lateral pa tellar tilt and subluxation. No acute fracture or dislocation. No suspicious osseous lesions. Soft tissues: Small left and trace right knee joint effusion. No suspicious soft tissue calcificatio ns or masses. IMPRESSION: Overall degenerative changes have increased compared to prior dated February 11, 2022. 1.No acute bony abnormality. 2.Left knee: Prior left ACL repair with no hardware loosening. Mildly increased anterior subluxation of the tibia with respect to the femur. Severe tricompartmental osteoarthritis. 3.Right knee: Severe tricompartmental osteoarthritis, worse in the medial compartment with bone-on-lenin ne. Ossific densities in the posterior tibiofemoral joint may represent intra-articular loose bodies and/or calcified bodies within a John's cyst. Reviewed by: Italo Howard MD on 01/06/2024 9:19 PM PDT Approved by: Italo Howard MD on 01/06/2024 9:19 PM PDT Station ID: [id number]
== END 2024-01-06 23:59 | disposition home or self-care (01) ==
LOC: DI.WOS 15:15
PROVIDERS: ATTEND Orthopaedic Surgery
DX: M17.0 Bilateral primary osteoarthritis of knee (principal); S83.112A Anterior subluxation of proximal end of tibia, left knee, initial encounter